=== PATIENT | female | born 1965 | race Caucasian/White ===

== ENCOUNTER → 2021-08-29 14:52 | Outpatient (CLI) | payer OTHER, SELFPAY ==
--- NOTE | ~2021-08-29 | US_ITS ---
EXAMINATION: US transvaginal DATE: 08/29/2021 15:46 INDICATION: Postmenopausal bleeding . Currently on hormone replacement therapy. TECHNIQUE: Multiple transvaginal sonographic images of the pelvis were obtained. COMPARISON: None. FINDINGS: Uterus: 4.7 x 2.6 x 3 cm. Endometrial complex measures 0.4 cm. Right Ovary: Right ovary not visualized. No adnexal abnormality. Left Ovary: 2.3 x 1.2 x 1.6 cm. Vascular flow is present. Simple appearing ovarian cyst measuring 1.2 cm, requiring no additional follow-up There is no free fluid in the pelvis. IMPRESSION: 1. Right ovary not visualized. 2. Otherwise normal pelvic ultrasound findings. Reviewed, dictated and finalized at location K.
== END ==
PROVIDERS: PCP Obstetrics & Gynecology Gynecology; Visit Provider Obstetrics & Gynecology Gynecology
DX: N95.0 Postmenopausal bleeding (principal)
CPT/HCPCS: 76830